=== PATIENT | female | born 1955 | race Caucasian/White ===

== ENCOUNTER 2019-01-20 20:31 | Emergency (ER) | payer BC ==
[~2019-01-20] VITALS: Ht 170.2 cm; Wt 71.4 kg
[2019-01-20 20:33] VITALS: Ht 170.2 cm; Wt 71.4 kg
[2019-01-20] MEDS ORDERED: KETOROLAC 30 MG INJ IM STA (20:54)
[2019-01-20] MEDS ORDERED: LORAZEPAM 0.5 MG TAB PO ONE (22:00)
[2019-01-20] MEDS ORDERED: IBUP-1542 PO (22:31)
[2019-01-20] MEDS ORDERED: LORA-441 PO (22:37)
[2019-01-20 22:43] VITALS: BP 120/81; PULSE 69; RESP 18
--- NOTE | 2019-01-20 23:11 | ERD ---
ER Documentation Chief Complaint Chief Complaint R hip pain since this afternoon HPI 63-year-old woman complains of right buttock pain since this afternoon while placing all of her weight on her right lower extremity while putting on some pants. She felt a snap in her right hip and had immediate pain and difficulty bearing weight on the right lower extremity. She does have a history of left hip osteoarthritis and bilateral knee osteoarthritis. She denies any redness or swelling to the hip, no knee pain, no right foot pain. ROS All systems reviewed and are negative except as per history of present illness. Medications Home Meds Active Scripts Lorazepam* (Ativan*) 0.5 Mg Tablet, 0.5 MG PO Q8H PRN for MUSCLE SPASMS, #10 TAB Prov:BHAVANI HENDERSON MD 01/20/19 Ibuprofen* (Motrin*) 600 Mg Tab, 600 MG PO Q8 PRN for PAIN AND/OR INFLAMMATION, #30 TAB Prov:BHAVANI HENDERSON MD 01/20/19 Allergies Allergies: Coded Allergies: clarithromycin (Verified Allergy, Unknown, 01/20/19) PMhx/Soc Osteoarthritis Medical and Surgical Hx: pt denies Medical Hx, pt denies Surgical Hx Hx Alcohol Use: No Hx Substance Use: No Hx Tobacco Use: No Smoking Status: Never smoker Physical Exam Vitals Vital Signs Date Temp Pulse Resp B/P (MAP) Pulse Ox O2 O2 Flow FiO2 Time Delivery Rate 01/20/19 97.6 69 18 120/81 100 Room Air 22:43 (94) 01/20/19 97.6 84 18 112/70 100 20:33 (84) Physical Exam GENERAL: Well-developed, well-nourished, well-hydrated, in no apparent distress, afebrile NEURO: Alert and oriented 3, cranial nerves II through XII intact bilaterally, pupils equal round reactive to light, no focal deficits or facial asymmetry, sensation intact distally Strength 5/5 in upper and lower extremities bilaterally CARDIAC: Regular rate and rhythm, no murmurs rubs or gallops LUNGS: Clear bilaterally no wheezing crackles or stridor SKIN: Warm and dry to touch, no abrasions, contusions, or hematomas, no lacerations, no ecchymosis, no target lesions, and without ulcers EXTREMITIES: No clubbing cyanosis or edema, calves are bilaterally symmetrical, no Homans sign, no popliteal cord sign. Distal pulses equal and bilateral PSYCH: Normal affect without agitation or irritability Results 24 hrs Current Medications Medications Dose Sig/Radha Start Time Status Last (Trade) Ordered Route PRN Stop Time Admin Dose Reason Admin Ketorolac 30 mg ONCE STAT 01/20/19 DC 01/20/19 Tromethamine IM 20:54 21:04 (Toradol) 01/20/19 20:56 Lorazepam 0.5 mg ONCE ONCE 01/20/19 DC 01/20/19 (Ativan) PO 22:00 22:04 01/20/19 22:01 Procedures/MDM I administered Toradol 30 mg IM x1 and later lorazepam 0.5 mg p.o. for continued right buttock pain. X-ray Pelvis 1V Interpreted by me: Bones: No fracture Joints: No dislocation Foreign body: None X-ray right hip 2V Interpreted by me: Bones: No fracture Joints: No dislocation Foreign body: None I did speak to her orthopedic surgeon on-call Dr. Sea Morales regarding the patient's presentation and symptomatology, he agreed to have her followed up at the clinic on Monday or Monday. Patient was able to bear full weight on her right lower extremity without difficulty although ambulating is difficult due to pain. She localizes her pain to the right lateral buttock and states due to the pain there she has difficulty walking, I did offer her a knee immobilizer to help stabilize the hip although she refused, but it seems her symptoms did improve quite a bit after lorazepam. I also recommended she wait for official x-ray readings to have a report ready for her PMD but it was getting late and she and her preferred to leave follow-up with her orthopedic surgeon tomorrow. Patient feels much better at this time, and vital signs are normal, symptoms have improved. I did give strict instructions to return to the ED if symptoms continue or worsen, patient will otherwise follow-up with primary care physician. Patient understood instructions and agreed to plan. Disclaimer: Inadvertent spelling and grammatical errors are likely due to EHR/dictation software use and do not reflect on the overall quality of patient care. Also, please note that the electronic time recorded on this note does not necessarily reflect the actual time of the patient encounter. Departure Diagnosis: Primary Impression: Hip strain Encounter type: initial encounter Laterality: right Qualified Codes: S76.011A - Strain of muscle, fascia and tendon of right hip, initial encounter Condition: Good Patient Instructions: Muscle Strain, Extremity BHAVANI HENDERSON MD Jan 20, 2019 23:11
== END 2019-01-21 00:23 | disposition home or self-care (01) ==
LOC: E/R 20:31
DX: S76.011A Strain of muscle, fascia and tendon of right hip, initial encounter (principal); X58.XXXA Exposure to other specified factors, initial encounter; Y92.9 Unspecified place or not applicable
CPT/HCPCS: 72170; 73510; 96372; 99284; J1885

== ENCOUNTER 2019-02-28 05:28 | Inpatient (IN) | payer BC ==
[2019-02-22 12:11] VITALS: BMI 24.8
[2019-02-28] VITALS (26 sets, daily range): BP systolic 86–116; BP diastolic 53–68; PULSE 50–86; RESP 16–28; Ht 170.2 cm; Wt 71.1 kg
[~2019-02-28] VITALS: Ht 170.2 cm; Wt 71.1 kg
--- NOTE | 2019-02-28 05:13 | HPN ---
Date/Time of Note Date/Time of Note DATE: 02/28/19 TIME: 05:12 Interval H&P Admission Note Pt. seen H&P reviewed: No system changes VANNESA DUMONT MD Feb 28, 2019 05:13
--- NOTE | 2019-02-28 05:15 | OPR ---
Date/Time of Note Date/Time of Note DATE: 02/28/19 TIME: 05:13 Operative Report Procedure Date: Feb 28, 2019 Preoperative Diagnosis Left hip primary arthritis Postoperative Diagnosis Left hip primary arthritis Operation/Procedure Performed 1. Left total hip arthroplasty 2. Left hip injection of PRP solution Surgeon see signature line Staff Climate Scientist Noble Perez DO Second Staff Climate Scientist: KRISSY HERRERA PA-C Anesthesia Type: general Estimated Blood Loss: 150 - 200 ml's Transfusion none Specimen See op note Grafts/Implants See op note Complications none Pt Condition Post Procedure: stable Disposition: PACU Procedure Description PSYCHOLOGICAL SCIENCE PROFESSOR SURGEON: Weston Perez DO was asked to be present at my request as a result of the complexity associated with this procedure including positioning of the extremity, positioning of the instrumentation and protection of the neurovascular structures. In my opinion, the assistance offered by a surgical assistant certified is insufficient and Dr. Perez should be compensated for his time. PROCEDURE IN DETAIL: Following the administration of general endotracheal anesthesia supplemented with a spinal anesthetic, the patient was placed in the supine position. The antecubital fossa on the left was prepped and 60 cc of blood were aspirated. Under sterile conditions, the blood was passed off to the solar sales representative and assessor from the company who prepared the PRP solution. The left lower extremity was then prepped and draped in the usual sterile fashion. A validation architect radiograph was obtained for preliminary limb length and femoral size as well as acetabular size. There was severe arthritic changes noted. Over the left hip, a lateral incision was then made exposing the tensor fascia the fascia was incised the tensor was retracted laterally and the vessels were cauterized. The anterior capsule was then identified and prepared. A capsulectomy was then performed and the femoral head was then evaluated. Severe arthritic changes were noted. A femoral head cut was then made in the appropriate degree of version and inclination. Following dislocation, severe arthritic changes were noted with very certain severe cystic changes in the femoral head. The acetabulum was then exposed and a capsulectomy and labrectomy were completed. The central portion was then entered and serially reamed up to the 51 mm size. A Depuy Breese cup which was 50 mm, with a standard liner was the n fit into position with solid fixation. A 20 mm screw was used for additional fixation. Attention was then directed to the femur, the femur was exposed and prepared. The canal was entered and serially reamed up to the size 5, standard offset. The femoral canal was then thoroughly irrigated and the PRP solution was then instilled into the femoral canal. A size 5 standard offset Depuy Actis stem was then inserted with solid fixation. A 36 mm, +1.5 mm femoral head, which was ceramic was then inserted. The leg was taken through full range of motion with no evident instability. In addition, radiographs revealed excellent position with reproduction of the limb lengths within a millimeter. The wound was irrigated thoroughly. The wound was then closed in layers and a Prenio for the final cover. This was watertight. Estimated blood loss was procedure was 2000 cc. Postoperative radiographs will be obtained in the recovery room. VANNESA DUMONT MD Feb 28, 2019 05:15
[~2019-02-28 05:28] MED LIST: IBUP-1542 PO; LEVO137T30 PO; LORA-441 PO
[2019-02-28] MEDS ORDERED: DEXAMETHASONE 1 MG TAB PO ONE (06:00)
[2019-02-28] MEDS ORDERED: SOD CHLORIDE 0.9% 100 ML, TRANEXAMIC ACID 3,000 MG IRR ONE ×2 (06:00)
[2019-02-28] MEDS ORDERED: BUPIVACAINE 0.5% (SDV) 30 ML, morphine SULFATE (PF) 8 MG, EPINEPHrine 0.3 MG, KETOROLAC... IRR SCH ×7 (06:00)
[2019-02-28] MEDS ORDERED: GABAPENTIN 300 MG CAP PO ONE (06:00)
[2019-02-28] MEDS ORDERED: LACTATED RINGER'S 1,000 ML IV SCH (06:00)
[2019-02-28] MEDS ORDERED: CEFAZOLIN 2 GM/50 ML (PMX) 50 ML IVPB ONE (06:00)
--- NOTE | 2019-02-28 06:51 | PREAC ---
Date/Time of Note Date/Time of Note DATE: 02/28/19 TIME: 06:50 Anesthesia Eval and Record Evaluation Time Pre-Procedure Interview DATE: 02/28/19 TIME: 06:50 Age 63 Sex female NPO: 8 hrs Preoperative diagnosis Left Hip OA Planned procedure Left Anterior Total Hip Replacement Past Medical History Past Medical History: Includes Endo: Hypothyroid Musculoskeletal: Osteoarthritis Surgery & Anesthesia Issues No known issue Meds Anticoagulation: No Beta Luis within 24 hr: No Reason Beta Luis not given: Pt. not on B-Luis Active Scripts Lorazepam* (Ativan*) 0.5 Mg Tablet, 0.5 MG PO Q8H PRN for MUSCLE SPASMS, #10 TAB Prov:BHAVANI HENDERSON MD 01/20/19 Ibuprofen* (Motrin*) 600 Mg Tab, 600 MG PO Q8 PRN for PAIN AND/OR INFLAMMATION, #30 TAB Prov:BHAVANI HENDERSON MD 01/20/19 Current Medications Bupivacaine HCl/ Morphine Sulfate/ Epinephrine/ Ketorolac Tromethamine/ Clonidine/Sodium Chloride/ Vancomycin HCl INTRA-OP IRR ; Start 02/28/19 at 06:00 Lactated Ringer's 1,000 ml @ 0 mls/hr Q0M IV Last administered on 02/28/19at 06:16; Admin Dose 25 MLS/HR; Start 02/28/19 at 06:00; Stop 02/28/19 at 18:00 Meds reviewed: Yes Allergies Coded Allergies: clarithromycin (Verified Allergy, Unknown, 01/20/19) Allergies Reviewed: Yes Labs/Studies Labs Reviewed: Reviewed by anesthesiologist test: N/A Studies: ECG (n/a), CXR (n/a) Pre-procedure Exam Last vitals Vital Signs Date Temp Pulse Resp B/P (MAP) Pulse Ox O2 O2 Flow FiO2 Time Delivery Rate 02/28/19 97.7 64 18 106/68 95 Room Air 06:38 (81) Airway: Adequate mouth opening, Adequate thyromental dist Mallampati: Mallampati II Teeth: Normal Lung: Normal Heart: Normal ASA Physical Status ASA physical status: 2 Emergency: None Planned Anesthetic General/MAC: ETT, LMA Neuraxial: Spinal Nerve block: Other (Left Fascia Iliaca Block) Planned Pain Management Sub-arachniod narcotics, Single shot nerve block, Parenteral pain med Pre-operative Attestations Prior to commencing anesthesia and surgery, the patient was re-evaluated, there was verification of: *The patient's identity *The results of appropriate recent lab work and preoperative vital signs *The above evaluation not changing prior to induction *Anesthetic plan, risk benefits, alternative and complications discussed with patient/family; questions answered; patient/family understands, accepts and wishes to proceed. DIDI SCHNEIDER MD Feb 28, 2019 06:51
[2019-02-28] MEDS ORDERED: ROCURONIUM 50 MG INJ ONE (06:55)
[2019-02-28] MEDS ORDERED: CEFAZOLIN 1 GM INJ ONE (06:55)
[2019-02-28] MEDS ORDERED: FENTAnyl 50 MCG/ML VIAL ONE (06:55)
[2019-02-28] MEDS ORDERED: PROPOFOL 20 ML ONE (06:55)
[2019-02-28] MEDS ORDERED: TRANEXAMIC ACID 1GM/100ML(PMX) 100 ML ONE (06:55)
[2019-02-28] MEDS ORDERED: MILRINONE LACTATE 1 MG/ML VIAL ONE (06:56)
[2019-02-28] MEDS ORDERED: ROPIVACAINE 0.5 % 30 ML VIAL ONE (06:56)
[2019-02-28] MEDS ORDERED: MIDAZOLAM 1 MG/ML 2 ML INJ ONE (06:57)
[2019-02-28] MEDS ORDERED: THROMBIN 20,000 UNIT VIAL ONE (07:26)
[2019-02-28] MEDS ORDERED: CA CHLORIDE 10% 10 ML SYRINGE ONE (07:26)
[2019-02-28] MEDS ORDERED: METOCLOPRAMIDE 10 MG INJ ONE (07:27)
[2019-02-28] MEDS ORDERED: DEXAMETHASONE 4 MG/ML 5 ML INJ ONE (07:27)
[2019-02-28] MEDS ORDERED: KETOROLAC 30 MG INJ ONE (07:27)
[2019-02-28] MEDS ORDERED: ONDANSETRON 4 MG INJ ONE (07:27)
[2019-02-28] MEDS: TRANEXAMIC ACID 1GM/100ML(PMX) 100 ML IVPB ONE ×2 (07:40→09:07)
[2019-02-28] MEDS ORDERED: PHENYLephrine (100 MCG/ML) 10ML SYG ONE (07:42)
[2019-02-28] MEDS ORDERED: HETASTARCH 6% NACL 500 ML ONE (07:55)
[2019-02-28] MEDS ORDERED: EPHEDrine 25 MG/5 ML SYG ONE (08:03)
[2019-02-28] MEDS ORDERED: OXYCODONE/ACETAMINOPHEN (5/325) TAB PO PRN (08:30)
[2019-02-28] MEDS ORDERED: DIPHENHYDRAMINE 50 MG INJ IV PRN ×3 (08:30→09:30)
[2019-02-28] MEDS ORDERED: ALBUMIN HUMAN 5% 250 ML IV PRN (08:30)
[2019-02-28] MEDS ORDERED: NALBUPHINE HCL (10 MG/1 ML) INJ IV PRN (08:30)
[2019-02-28] MEDS ORDERED: LABETALOL HCL 20MG INJ IV PRN (08:30)
[2019-02-28] MEDS ORDERED: METOCLOPRAMIDE 10 MG INJ IV PRN (08:30)
[2019-02-28] MEDS ORDERED: KETOROLAC 30 MG INJ IV PRN (08:30)
[2019-02-28] MEDS ORDERED: ONDANSETRON 4 MG INJ IV PRN ×3 (08:30→09:30)
[2019-02-28] MEDS ORDERED: MEPERIDINE 25 MG INJ IV PRN (08:30)
[2019-02-28] MEDS ORDERED: HYDROCODONE/APAP (5/325) TAB PO PRN (08:30)
[2019-02-28] MEDS ORDERED: HYDROmorphONE 0.5 MG/0.5 ML SYG IV PRN ×2 (08:30)
[2019-02-28] MEDS ORDERED: morphine 2 MG INJ IV PRN ×2 (08:30)
[2019-02-28] MEDS ORDERED: ACETAMINOPHEN 500 MG TAB PO PRN (08:30)
[2019-02-28] MEDS ORDERED: FENTAnyl 50 MCG/ML VIAL IV PRN ×2 (08:30)
[2019-02-28] MEDS ORDERED: EPHEDrine 25 MG/5 ML SYG IV PRN (08:30)
[2019-02-28] MEDS ORDERED: HYDROmorphONE 1 MG/5 ML IV SYRINGE IV PRN ×2 (08:30)
[2019-02-28] MEDS ORDERED: NALOXONE (0.4 MG/ML) INJ IV PRN (08:30)
[2019-02-28] MEDS ORDERED: TRANEXAMIC ACID 1GM/100ML(PMX) 200 ML ONE (09:01)
[2019-02-28] MEDS ORDERED: SUGAMMADEX SODIUM 200 MG/2 ML VIAL IV ONE (09:09)
[2019-02-28] MEDS ORDERED: MAGNESIUM HYDROXIDE 30ML CUP PO PRN (09:30)
[2019-02-28] MEDS ORDERED: NACL 0.9% 3 ML SYG IV SCH (09:30)
[2019-02-28] MEDS ORDERED: ZOLPIDEM 5 MG TAB PO PRN (09:30)
[2019-02-28] MEDS ORDERED: HYDROmorphONE 1 MG/ML SYG IV PRN (09:30)
[2019-02-28] MEDS ORDERED: oxyCODONE 5 MG TAB PO PRN ×2 (09:30)
--- NOTE | 2019-02-28 09:31 | PAC ---
Date/Time of Note Date/Time of Note DATE: 02/28/19 TIME: 09:30 Post-Anesthesia Notes Post-Anesthesia Note Last documented vital signs Vital Signs Date Temp Pulse Resp B/P (MAP) Pulse Ox O2 O2 Flow FiO2 Time Delivery Rate 02/28/19 98.0 89 16 108/62(76) 96 Room Air 09:25 02/28/19 64 18 106/68 95 Room Air 06:38 (81) Activity: WNL Respiratory function: WNL Cardiovascular function: WNL Mental status: Baseline Pain reasonably controlled: Yes Hydration appropriate: Yes Nausea/Vomiting absent: Yes DIDI SCHNEIDER MD Feb 28, 2019 09:30
[2019-02-28] MEDS: LACTATED RINGER'S 1,000 ML IV SCH ×2 (09:55→20:35)
[2019-02-28] MEDS: CEFAZOLIN 1 GM/50 ML (PMX) 50 ML IVPB SCH ×2 (10:03→16:36)
[2019-02-28] MEDS: ACETAMINOPHEN 1000MG/100ML IV 100 ML IVPB SCH ×2 (10:03→17:32)
[2019-02-28] MEDS: DEXAMETHASONE 2 MG TAB PO SCH ×2 (12:00→17:32)
[2019-02-28] MEDS: LEVOTHYROXINE 137 MCG TAB PO SCH (12:20)
--- NOTE | 2019-02-28 14:54 | PDOCDIS ---
Discharge Instructions DIAGNOSIS Discharge Diagnosis Hip arthritis CONDITION [id number] Patient Condition: [id number] Good HOME CARE INSTRUCTIONS: [id number] Diet Instructions: [id number] Regular ACTIVITY: [id number] Activity Restrictions: [id number] Slowly Increase Activity Keep Limb Elevated [id number] Bathing Restrictions: [id number] Shower FOLLOW UP/APPOINTMENTS Follow-up Plan 2 weeks in the office SCHOOL/WORK RELEASE May return to School/Work with: With Restrictions School/Work Release Comment: No hip extension for 6 weeks VANNESA DUMONT MD Feb 28, 2019 14:54
[2019-02-28] MEDS: SENNA/DOCUSATE NA (8.6MG/50MG) TAB PO SCH (20:35)
[2019-02-28] MEDS ORDERED: GABAPENTIN 300 MG CAP PO SCH (21:00)
[2019-03-01] VITALS: BP 102/55; PULSE 64; RESP 18
[2019-03-01] MEDS: ACETAMINOPHEN 1000MG/100ML IV 100 ML IVPB SCH (00:22)
[2019-03-01] MEDS: CEFAZOLIN 1 GM/50 ML (PMX) 50 ML IVPB SCH (00:22)
[2019-03-01] MEDS: DEXAMETHASONE 2 MG TAB PO SCH ×2 (00:22→06:12)
[2019-03-01] MEDS: LEVOTHYROXINE 137 MCG TAB PO SCH (06:12)
[2019-03-01] MEDS: LACTATED RINGER'S 1,000 ML IV SCH (06:12)
--- NOTE | 2019-03-01 06:24 | PN ---
Date/Time of Note Date/Time of Note DATE: 03/01/19 TIME: 06:23 Subjective Awake and alert with no complaints. Objective Vitals Vital Signs Date Temp Pulse Resp B/P (MAP) Pulse Ox O2 O2 Flow FiO2 Time Delivery Rate 03/01/19 98.1 64 18 102/55 95 Room Air 00:00 (71) Intake and Output 02/28/19 02/28/19 03/01/19 1515:00 23:00 07:00 IntakeIntake Total 1200 ml 550 ml OutputOutput Total 10 ml BalanceBalance 1190 ml 550 ml Wound clean and dry. No signs of DVT. Neurologically intact. Results Result Diagram: 03/01/19 0432 Medications Medications Current Medications Hydromorphone HCl (Dilaudid) 0.2 mg Q2H PRN IV .PAIN 1-5; Start 02/28/19 at 08:30; Stop 03/01/19 at 07:00 Hydromorphone HCl (Dilaudid) 0.4 mg Q2H PRN IV .PAIN 6-10; Start 02/28/19 at 08:30; Stop 03/01/19 at 07:00 Morphine Sulfate (morphine) 2 mg Q2H PRN IV .PAIN 1-5; Start 02/28/19 at 08:30; Stop 03/01/19 at 07:00 Morphine Sulfate (morphine) 4 mg Q2H PRN IV .PAIN 6-10; Start 02/28/19 at 08:30; Stop 03/01/19 at 07:00 Ketorolac Tromethamine (Toradol) 30 mg Q6H PRN IV .PAIN 6-10; Start 02/28/19 at 08:30; Stop 03/01/19 at 07:00 Acetaminophen (Tylenol Tab) 500 mg Q4H PRN PO .PAIN 1-3; Start 02/28/19 at 08:30; Stop 03/01/19 at 07:00 Acetaminophen/ Hydrocodone Bitart ([place] (5/325)) 1 tab Q4H PRN PO .PAIN 4-6; Start 02/28/19 at 08:30; Stop 03/01/19 at 07:00 Diphenhydramine HCl (Benadryl) 25 mg Q4H PRN IV .PRURITUS; Start 02/28/19 at 08:30; Stop 03/01/19 at 07:00 Nalbuphine HCl (Nubain) 10 mg Q4H PRN IV .PRURITUS; Start 02/28/19 at 08:30; Stop 03/01/19 at 07:00 Ondansetron HCl (Zofran Inj) 4 mg Q6H PRN IV .NAUSEA/VOMITING Last administered on 02/28/19at 10:41; Admin Dose 4 MG; Start 02/28/19 at 08:30; Stop 03/01/19 at 07:00 Naloxone HCl (Narcan) 0.2 mg Q2M PRN IV .RESP RATE; Start 02/28/19 at 08:30; Stop 03/01/19 at 07:00 Miscellaneous Information (* Miscellaneous Pharmacy Order) FENTANYL: 20 MCG SPI... GIVEN NEURAXIAL XX ; Start 02/28/19 at 08:30 Lactated Ringer's 1,000 ml @ 100 mls/hr Q10H IV Last administered on 03/01/19at 06:12; Admin Dose 100 MLS/HR; Start 02/28/19 at 09:12 Senna/Docusate Sodium (Senokot-S) 1 tab BID PO Last administered on 02/28/19at 20:35; Admin Dose 1 TAB; Start 02/28/19 at 21:00 Simethicone (Mylicon) 80 mg TID PRN PO .GAS; Start 02/28/19 at 09:30 Magnesium Hydroxide (Milk Of Mag) 30 ml BID PRN PO .CONSTIPATION; Start 02/28/19 at 09:30 Magnesium Hydroxide (Milk Of Mag) 30 ml HS PO ; Start 03/02/19 at 21:00 Gabapentin (Neurontin) 300 mg HS PO Last administered on 02/28/19at 20:35; Admin Dose 300 MG; Start 02/28/19 at 21:00 Oxycodone HCl (Roxicodone) 15 mg Q4H PRN PO .PAIN; Start 02/28/19 at 09:30 Oxycodone HCl (Roxicodone) 10 mg Q4H PRN PO .PAIN; Start 02/28/19 at 09:30 Oxycodone HCl (Roxicodone) 5 mg Q4H PRN PO .PAIN; Start 02/28/19 at 09:30 Hydromorphone HCl (Dilaudid) 1 mg Q4H PRN IV .BREAKTHROUGH PAIN; Start 02/28/19 at 09:30 Ondansetron HCl (Zofran Inj) 4 mg Q6H PRN IV NAUSEA/VOMITING; Start 02/28/19 at 09:30 Diphenhydramine HCl (Benadryl) 25 mg Q6H PRN IV .PRURITUS; Start 02/28/19 at 09:30 Zolpidem Tartrate (Ambien) 10 mg HS PRN PO .INSOMNIA; Start 02/28/19 at 09:30 IV Flush (NS 3 ml) 3 ml per protocol IV ; Start 02/28/19 at 09:30 Aspirin (Ecotrin) 325 mg DAILY PO ; Start 03/01/19 at 09:00 Levothyroxine Sodium (Synthroid) 137 mcg BEFORE BREAKFAST PO Last administered on 03/01/19at 06:12; Admin Dose 137 MCG; Start 02/28/19 at 12:00 VTE Prophylaxis Risk score (from Nsg)>0 risk: 5 SCD applied (from Nsg): Yes Lines/Catheters IV Catheter Type: Saline Lock Guerrero in Place: No Assessment/Plan Assessment/Plan Assessment: Status post joint replacement Plan: Begin PT this morning discharge when independent VANNESA DUMONT MD Mar 01, 2019 06:24
--- NOTE | 2019-03-01 06:25 | DS ---
Date/Time of Note Date/Time of Note DATE: 03/01/19 TIME: 06:24 Discharge Summary Admission/Discharge Info Admit Date/Time Feb 28, 2019 at 05:28 Discharge Date/Time 03/01/2019 Discharge Diagnosis Hip arthritis Patient Condition: Good Hospital Course Admitted, underwent uncomplicated procedure. Postop day 1 discharge after PT. Home Meds Reported Medications Levothyroxine Sodium* (Synthroid*) 137 Mcg Tablet, 137 MCG PO BEFORE BREAKFAST, #30 TAB PT TAKES BRAND 02/28/19 Discontinued Scripts Lorazepam* (Ativan*) 0.5 Mg Tablet, 0.5 MG PO Q8H PRN for MUSCLE SPASMS, #10 TAB Prov:BHAVANI HENDERSON MD 01/20/19 Ibuprofen* (Motrin*) 600 Mg Tab, 600 MG PO Q8 PRN for PAIN AND/OR INFLAMMATION, #30 TAB Prov:BHAVANI HENDERSON MD 01/20/19 Follow-up Plan 2 weeks in the office Primary Care Provider Not On Staff Doctor Pending Labs Laboratory Tests Test 02/28/19 09:51 03/01/19 04:32 White Blood Count 6.7 10^3/ul (4.8-10.8) 13.9 10^3/ul (4.8-10.8) Red Blood Count 3.52 10^6/ul (4.20-5.40) 3.26 10^6/ul (4.20-5.40) Hemoglobin 10.7 g/dl (12.0-16.0) 10.1 g/dl (12.0-16.0) Hematocrit 33.0 % (37.0-47.0) 30.8 % (37.0-47.0) Mean Corpuscular Volume 93.8 fl (82.0-101.0) 94.5 fl (82.0-101.0) Mean Corpuscular 30.4 pg (29.0-33.0) 31.0 pg (29.0-33.0) Hemoglobin Mean Corpuscular 32.4 g/dl (32.0-37.0) 32.8 g/dl (32.0-37.0) Hemoglobin Concent Red Cell Distribution 13.3 % (11.5-14.5) 13.4 % (11.5-14.5) Width Platelet Count 255 10^3/UL (140-415) 267 10^3/UL (140-415) Mean Platelet Volume 9.2 fl (7.4-10.4) 9.5 fl (7.4-10.4) Immature Granulocytes % 1.200 % (0.001-0.429) 0.500 % (0.001-0.429) Neutrophils % 78.4 % (39.0-77.0) 82.9 % (39.0-77.0) Lymphocytes % 16.3 % (15.0-51.0) 7.5 % (15.0-51.0) Monocytes % 2.7 % (0.0-11.0) 9.0 % (0.0-11.0) Eosinophils % 1.0 % (0.0-7.0) 0.0 % (0.0-7.0) Basophils % 0.4 % (0.0-2.0) 0.1 % (0.0-2.0) Nucleated Red Blood Cells 0.0 /100WBC (0.0-0.0) 0.0 /100WBC (0.0-0.0) % Immature Granulocytes # 0.080 10^3/ul (0.0-0.031) 0.070 10^3/ul (0.0-0.031) Neutrophils # 5.2 10^3/ul (1.6-7.5) 11.5 10^3/ul (1.6-7.5) Lymphocytes # 1.1 10^3/ul (0.8-2.9) 1.0 10^3/ul (0.8-2.9) Monocytes # 0.2 10^3/ul (0.3-0.9) 1.2 10^3/ul (0.3-0.9) Eosinophils # 0.1 10^3/ul (0.0-0.5) 0.0 10^3/ul (0.0-0.5) Basophils # 0.0 10^3/ul (0.0-0.1) 0.0 10^3/ul (0.0-0.1) Nucleated Red Blood Cells 0.0 10^3/ul (0.0-0.0) 0.0 10^3/ul (0.0-0.0) # VANNESA DUMONT MD Mar 01, 2019 06:25
[2019-03-01] MEDS ORDERED: LEVOTHYROXINE 137 MCG TAB PO SCH (07:00)
[2019-03-01 07:54] VITALS: BP 101/56; PULSE 71; RESP 20
[2019-03-01] MEDS ORDERED: ASPIRIN (EC) 325 MG TAB PO SCH (09:00)
[2019-03-01] MEDS: SENNA/DOCUSATE NA (8.6MG/50MG) TAB PO SCH (09:23)
[2019-03-01] MEDS: oxyCODONE 5 MG TAB PO PRN ×2 (09:24→12:10)
[2019-03-02] MEDS ORDERED: MAGNESIUM HYDROXIDE 30ML CUP PO SCH (21:00)
== END 2019-03-01 13:13 | disposition home or self-care (01) | DRG 470 ==
LOC: REC 05:28 → EDSTATUS 07:00 → MS1 10:14
PROVIDERS: ADMIT Orthopaedic Surgery; ATTEND Orthopaedic Surgery
PROC: 0SRB04A Replacement of Left Hip Joint with Ceramic on Polyethylene Synthetic Substitute, Uncemented, Open Approach (ICD-10-PCS; principal; 2019-02-28 07:00)
DX: M16.12 Unilateral primary osteoarthritis, left hip (principal); E03.9 Hypothyroidism, unspecified
CPT/HCPCS: 72170; 73530; 85025; 86999; 87086; 88304; 88311; 97116; 97161; 97530; C1713; C1776; J0131; J0171; J0690; J0735; J1100; J1885; J2250; J2260; J2274; J2370; J2405; J2765; J2795; J3010; J3370; J7120